=== PATIENT | female | born 1975 | race Two or more races ===

== ENCOUNTER 2024-12-09 02:06 | Emergency (ER) | payer BC, SELFPAY ==
[2024-12-09 02:06] VITALS: BMI 20.8
[2024-12-09 02:56] VITALS: BP 116/75; PULSE 73; RESP 16; TEMP 37.1; O2SAT 97
--- NOTE | 2024-12-09 03:17 | EDNOTE_ITS ---
Nausea/Vomit./Diarrhea-RME/HPI General Chief complaint: Allergic Reaction Stated complaint: ALLERGIC REACTION TO MESALAMINE 1.2G Time Seen by Provider: 12/09/24 03:07 Arrival date/time: 12/09/24 02:06 49F with history of UC presents to ED with N/V and bloody diarrhea after she started taking mesalamine for the first time 2 days ago. Limitations: no limitations Related Data Home Medications ?Medication ?Instructions ?Recorded ?Confirmed miconazole nitrate 200 mg/5 gram 1 appl VAG HS PRN yea st infection 04/04/16 (4 %) vaginal cream (3 Day Vaginal) 7 days ##0 Previous Rx's ?Medication ?Instructions ?Recorded Hydrocodone/Acetaminophen * (NORCO 1 tab PO Q12HR PRN ABDOMINAL 04/28/16 5/325 *) CRAMPING #12 tabs Vitamin * 1 tab PO QDAY #60 tabs 04/28 docusate sodium 100 mg capsule 100 mg PO BID constipat ion #60 caps 04/28/16 (Colace) ibuprofen 600 mg tablet 600 mg PO Q8HR PRN PAIN #30 tabs 04/28/16 acetaminophen 325 mg capsule 975 mg (3 x 325 mg) PO Q6 H PRN 04/02/20 pain #30 caps ibuprofen 600 mg tablet 600 mg PO Q6H #30 tabs 04/02 ondansetron 4 mg disintegrating 4 mg PO Q8H PRN nausea and 12/09/24 tablet vomiting #14 tabs prednisone 50 mg tablet 50 mg PO QDAY 7 days #7 tabs 12/09/24 Allergies Allergy/AdvReac Type Severity Reaction Status Date / Time NKA* Allergy Uncoded 04/28/16 09:14 Review of Systems Review of Systems Systems Reviewed: All systems reviewed, normal except as documented Gastrointestinal Gastrointestinal: Reports as per HPI, Reports hematochezia, Reports nausea and Reports vomiting Past Medical History Past Medical History GASTROINTESTINAL: Positive Ulcerative Colitis Social History SMOKING STATUS: Never smoker ED Exam General Limitations: Present no limitations General appearance: Present alert, in no apparent distress and anxious (crying) Head Head exam: Present atraumatic Neck Neck exam: Present normal inspection, full ROM and trachea midline Chest Chest inspection: Present normal inspection and symmetric chest wall rise Psychiatric Psychiatric exam: Present normal affect, normal mood and anxious (crying) Course Quality Measures none Orders Category Date Time Status Ondansetron Odt [Zofran Odt] Med 12/09/24 03:11 Discontinued 4 mg PO X1 ONE predniSONE Med 12/09/24 03:07 Discontinued 60 mg PO X1 ONE Vital Signs Vital signs: Vital Signs Temperature 98.7 F 12/09/24 02:56 Pulse Rate 73 12/09/24 02:56 Respiratory Rate 16 12/09/24 02:56 Blood Pressure 116/75 12/09/24 02:56 Pulse Oximetry (%) 97 12/09/24 02:56 Oxygen Delivery Method Room Air 12/09/24 02:56 O2 at 97% on RA and WNLs Nausea/Vomiting/Diarrhea MDM Narrative MDM Narrative:: 49F with history of UC presents to ED with N/V and bloody diarrhea after she started taking mesalamine for the first time 2 days ago. Physical exam reveals tired-appearing female. Patient is afebrile, alert, but anxious/crying. Meds and vocational rehabilitation counselor given. Possible drug adverse reaction vs UC flare. Patient data External records reviewed:: [facility] previous records Clinical information provided by:: patient Social determinants that could affect healthcare access:: none Patient has the following chronic illnesses:: UC How is presenting disease/condition affected by chronic disease/condition?: exacerbated by Evaluation data The following diagnostics were reviewed and interpreted by me:: other (specify) (none) Lab and/or radiology exams considered but not ordered:: not ordered Interpretation Summary: n/a Medications / Prescriptions Medications / Prescriptions considered but not ordered:: ordered Medication administrations:: Medication Administration History Discontinued Medications Ondansetron HCl (Ondansetron Odt 4 Mg Tabrap) 4 mg PO X1 ONE; Protocol Stop: 12/09/24 03:12 Prednisone (Prednisone 20 Mg Tablet) 60 mg PO X1 ONE Stop: 12/09/24 03:08 above Consultations Consultation(s) initiated? (list below): No Diagnosis Nausea Differential Diagnosis: traveler's diarrhea, food poisoning, gastroenteritis, clostridium difficile infection, drug-induced nausea and vomiting, dehydration and other (UC) Most likely diagnosis given after review of the tests above:: UC and drug adverse effect Admission Indicated Admission indicated?: not indicated Admission Request Was there a request for admission?: No Disposition Plan Disposition Plan: Discharge Discharge Attestation Discharge Attestation: The patient and all family members were given an opportunity to ask questions an d understood the discharge instructions. Discharge instructions specifically effects, indications for sooner follow up or return to the emergency department, and the expected course of current diagnosis. Patient condition: Stable Discharge Plan Plan Patient Disposition: HOME (Self Care) Discharge Disposition comment: Stable Prescriptions/Referrals Prescriptions/Med Rec: New prednisone 50 mg tablet 50 mg PO QDAY 7 Days Qty: 7 0RF ondansetron 4 mg tablet,disintegrating 4 mg PO Q8H PRN (Reason: nausea and vomiting) Qty: 14 0RF No Action miconazole nitrate [3 Day Vaginal] 25 GM cream 1 appl VAG HS PRN (Reason: yeast infection ) 7 Days Qty: 0 docusate sodium [Colace] 100 MG capsule 100 mg PO BID Qty: 60 0RF ibuprofen 600 MG tablet 600 mg PO Q8HR PRN (Reason: PAIN) Qty: 30 0RF Hydrocodone/Acetaminophen * (NORCO 5/325 *) 1 TAB tablet 1 tab PO Q12HR PRN (Reason: ABDOMINAL CRAMPING) Qty: 12 0RF Vitamin * 1 EACH tablet 1 tab PO QDAY Qty: 60 1RF ibuprofen 600 mg tablet 600 mg PO Q6H Qty: 30 0RF acetaminophen 325 mg capsule 975 mg PO Q6H PRN (Reason: pain) Qty: 30 0RF Referrals: Temporary Provider,ED [Physician, Emergency Medicine] - In 1 week Problem List Clinical Impression: Adverse drug effect, Ulcerative colitis Patient/Caregiver Discharge Instructions Education Materials: Colitis Ulcerative Meds Additional Instructions: Please follow-up with PCP within 24-48 hours and return immediately if symptoms worsen. See GI doctor to see if you want to try another maintenance med or try mesalamine again. Print Language: Armenian Stand Alone Forms: Patient Portal Info Letter VIKTOR/JEANETTE Supervising Physician VIKTOR/JEANETTE Supervising Physician: Dr Flores
[2024-12-09] MEDS: ONDANSETRON ODT 4 MG TABRAP PO (03:28)
== END 2024-12-09 03:32 | disposition home or self-care (01) ==
LOC: SERX 03:19
PROVIDERS: Emergency Provider Emergency Medicine; PCP Family Medicine
DX: K51.911 Ulcerative colitis, unspecified with rectal bleeding (principal); T50.905A Adverse effect of unspecified drugs, medicaments and biological substances, initial encounter; R11.2 Nausea with vomiting, unspecified
CPT/HCPCS: 99283; J7512; Q0162